=== PATIENT | male | born 1940 | race Caucasian/White ===

== ENCOUNTER 2019-03-28 22:08 | Emergency (ER) | payer MEDICARE ==
[2019-03-28] MEDS ORDERED: Sodium Chloride 0.9% 10 ML Syringe FLUSH PRN (22:22)
--- NOTE | 2019-03-28 22:28 | EDM.PDOC ---
ED HPI GENERAL MEDICAL PROBLEM - General Chief Complaint: Gastrointestinal Problem Stated Complaint: PAIN IN LOWER ABDOMEN Time Seen by Provider: 03/28/19 22:11 Source of Information: Reports: Patient History Limitations: Reports: No Limitations - History of Present Illness INITIAL COMMENTS - FREE TEXT/NARRATIVE: Patient presents with complaints of a right sided inguinal hernia that he feels has increased in size and is now causing him pain. Rates a 5/10. The increase in size is new to tonight. Extensive medical history includes CVA with right sided residual weakness in 2016, persistent a-fib, BPH. Primary provider is Dr. Nereida Funes. He denies chest pain, sob, nausea, vomiting, diarrhea, no blood in urine or stools. He has right lower quadrant, right upper thigh and scrotal pain. Described as an ache. No recent falls. Takes coumadin. Onset: Gradual Duration: Getting Worse Location: Reports: Abdomen, Lower Extremity, Right Quality: Reports: Ache Severity: Moderate Right Scrotum Pain Score (Numeric/FACES): 5 - Related Data Allergies Allergy/AdvReac Type Severity Reaction Status Date / Time No Known Allergies Allergy Verified 03/28/19 22:17 Home Meds: Home Meds Allopurinol [Zyloprim] 100 mg PO DAILY 10/23/15 [History] Carvedilol 12.5 mg PO BID 10/23/15 [History] Montelukast [Singulair] 10 mg PO DAILY 10/23/15 [History] Omeprazole [Prilosec] 20 mg PO DAILY 10/23/15 [History] Simvastatin [Zocor] 40 mg PO DAILY 10/23/15 [History] Ubidecarenone [Co Q-10] 1,000 mg PO DAILY 10/23/15 [History] Warfarin [Coumadin] 5 mg PO ASDIRECTED 10/23/15 [History] Finasteride 1 tab PO DAILY 03/28/19 [History] Fluticasone Propionate [Flonase] 2 spray NASBOTH DAILY 03/28/19 [History] Ipratropium [Atrovent 0.06% Nasal [place]] 2 spray NASBOTH TID PRN 03/28/19 [ History] Multivits,Ca,Minerals/Iron/FA [Thera-M] 1 each PO DAILY 03/28/19 [History] Saw [place] 2 cap PO DAILY 03/28/19 [History] Tamsulosin HCl 1 tab PO DAILY 03/28/19 [History] Past Medical History HEENT History: Reports: Hard of Hearing, Impaired Vision Musculoskeletal History: Reports: Gout Neurological History: Reports: CVA ED ROS GENERAL - Review of Systems Review Of Systems: See Below Constitutional: Reports: No Symptoms HEENT: Reports: No Symptoms Respiratory: Reports: No Symptoms Cardiovascular: Reports: No Symptoms Endocrine: Reports: No Symptoms GI/Abdominal: Reports: Abdominal Pain, Other (hernia) : Reports: No Symptoms Musculoskeletal: Reports: No Symptoms, Leg Pain Skin: Reports: No Symptoms Neurological: Reports: No Symptoms Psychiatric: Reports: No Symptoms Hematologic/Lymphatic: Reports: No Symptoms Immunologic: Reports: No Symptoms ED EXAM, GI/ABD - Physical Exam Exam: See Below Exam Limited By: No Limitations General Appearance: Alert, WD/WN, Mild Distress Eyes: Bilateral: Normal Appearance, EOMI Ears: Normal TMs Neck: Normal Inspection, Supple, Non-Tender, Full Range of Motion Respiratory/Chest: No Respiratory Distress, Lungs Clear, Normal Breath Sounds, No Accessory Muscle Use, Chest Non-Tender Cardiovascular: Normal Peripheral Pulses, Regular Rate, Rhythm, No Edema, No Gallop, No JVD, No Murmur, No Rub GI/Abdominal Exam: Normal Bowel Sounds, Soft, Hernia (Male) Exam: Hernia (right inguinal), Scrotum Tenderness (R) Back Exam: Normal Inspection, Full Range of Motion, NT Extremities: Normal Inspection, Non-Tender, No Pedal Edema, Normal Capillary Refill, Limited Range of Motion ( right leg has limited rom secondary to prior CVA) Neurological: Alert, Oriented, CN II-XII Intact, Normal Cognition, Normal Gait Psychiatric: Normal Affect, Normal Mood Lymphatic: No Adenopathy Course - Vital Signs Last Recorded V/S: Last Vital Signs Temp 36.4 C 03/28/19 22:18 Pulse 50 L 03/28/19 22:18 Resp 18 03/28/19 22:18 BP 129/62 03/28/19 22:18 Pulse Ox 95 03/28/19 22:18 - Orders/Labs/Meds Orders: Active Orders 24 hr Category Date Time Status Abdomen w Cont [CT] Stat Exams 03/28/19 22:22 Ordered CBC WITH AUTO DIFF [HEME] Stat Lab 03/28/19 22:21 Ordered COMPREHENSIVE METABOLIC PN,CMP [CHEM] Stat Lab 03/28/19 22:21 Ordered CRP [C-REACTIVE PROTEIN] [CHEM] Stat Lab 03/28/19 22:21 Ordered Sodium Chloride 0.9% [Saline Flush] Med 03/28/19 22:22 Active 10 ml FLUSH ASDIRECTED PRN Saline Lock Insert [OM.PC] Routine Oth 03/28/19 22:22 Ordered Medication Orders Sodium Chloride (Saline Flush) 10 ml FLUSH ASDIRECTED PRN PRN Reason: Keep Vein Open Meds: Medications Generic Name Dose Route Start Last Admin Trade Name Freq PRN Reason Stop Dose Admin Sodium Chloride 10 ml 03/28/19 22:22 Saline Flush FLUSH ASDIRECTED PRN Keep Vein Open - Radiology Interpretation Free Text/Narrative:: CT shows suspected incarcerated right inguinal hernia Departure - Departure Time of Disposition: 01:01 Disposition: Home, Self-Care 01 Condition: Good Clinical Impression: Incarcerated right inguinal hernia - Discharge Information *PRESCRIPTION DRUG MONITORING PROGRAM REVIEWED*: Not Applicable *COPY OF PRESCRIPTION DRUG MONITORING REPORT IN PATIENT KANA: Not Applicable Instructions: Inguinal Hernia, Adult, [id number] Referrals: Nereida Funes, [Primary Care Provider] - Forms: ED Department Discharge Additional Instructions: Plan 1. Follow up with surgery in the next couple of days for possible surgical reduction of the hernia. 2. I talked with Dr. Hurtado, the b2b sales professional surgeon at [facility] who did not feel surgery was warranted immediately. 3. Watch closely and if there is any worsening of your pain, I would recommend going to [facility] as they are able to admit and perform surgery if needed. 4. Let Dr. Funes know you were here and that you are to follow up with surgery in the next few days. 5. You may take tylenol for pain. 6. Please contact us if you have any questions or concerns. ED Communication - ED Communication Date/Time Date: 03/29/19 Time Called: 00:40 - Discussed Case With (1) Discussed Case With (1): Other (Dr. Evans contacted at [facility]. Review of CT results. Encouraged follow up with surgery, but not emergent for surgery. ) - Problem List & Annotations (1) Incarcerated right inguinal hernia SNOMED Code(s): 576350926 Code(s): K40.30 - UNIL INGUINAL HERNIA, W OBST, W/O GANGR, NOT SPCF RECUR Status: Acute Priority: Medium Current Visit: Yes - Problem List Review Problem List Initiated/Reviewed/Updated: Yes - My Orders Last 24 Hours: My Active Orders 03/28/19 22:21 CBC WITH AUTO DIFF [HEME] Stat COMPREHENSIVE METABOLIC PN,CMP [CHEM] Stat CRP [C-REACTIVE PROTEIN] [CHEM] Stat 03/28/19 22:22 Abdomen w Cont [CT] Stat Sodium Chloride 0.9% [Saline Flush] 10 ml FLUSH ASDIRECTED PRN Saline Lock Insert [OM.PC] Routine - Assessment/Plan Last 24 Hours: My Active Orders 03/28/19 22:21 CBC WITH AUTO DIFF [HEME] Stat COMPREHENSIVE METABOLIC PN,CMP [CHEM] Stat CRP [C-REACTIVE PROTEIN] [CHEM] Stat 03/28/19 22:22 Abdomen w Cont [CT] Stat Sodium Chloride 0.9% [Saline Flush] 10 ml FLUSH ASDIRECTED PRN Saline Lock Insert [OM.PC] Routine Assessment:: Incarcerated right inguinal hernia, suspected Plan: Plan 1. Follow up with surgery in the next couple of days for possible surgical reduction of the hernia. 2. I talked with Dr. Hurtado, the b2b sales professional surgeon at [facility] who did not feel surgery was warranted immediately. 3. Watch closely and if there is any worsening of your pain, I would recommend going to [facility] as they are able to admit and perform surgery if needed. 4. Let Dr. Funes know you were here and that you are to follow up with surgery in the next few days. 5. You may take tylenol for pain. 6. Please contact us if you have any questions or concerns.
[2019-03-28] MEDS ORDERED: Sodium Chloride 0.9% 1,000 ML IV ONE (22:31)
[2019-03-28 22:57] LABS: CHLORIDE,CL 108 mmol/L (98-107); SODIUM,NA 143 mmol/L (136-145)
[2019-03-28 22:58] LABS: ANION GAP 11.2 mmol/L (10-20)
[2019-03-28] MEDS ORDERED: Iopamidol 612 MG/ML 100 ML Bottle IVPUSH ONE (23:18)
--- NOTE | 2019-03-29 08:55 | CT ---
[id number] CT/CT Abdomen Pelvis W IV EXAM: ABDOMEN AND PELVIS CT WITH CONTRAST INDICATION: Increased hernia and scrotal pain. COMPARISON: None. DISCUSSION: There is a small to moderate fat-containing right inguinal hernia with infiltration of the fat and a small amount of fluid within the hernia sac suspicious for incarceration. The right anterior aspect of the urinary bladder is pulled toward the hernia orifice, but is not contained within the hernia. There is a small left inguinal hernia that appears post repair and a small fat-containing umbilical hernia. There are few right renal cysts the largest measuring about 5.8 x 3.9 cm. Prior cholecystectomy is suggested. 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 Scattered colonic diverticula without evidence of diverticulitis. The liver, spleen, pancreas, adrenal glands, and small bowel are normal in appearance. No adenopathy, free air free fluid. Grade 1 L4-L5 spondylolisthesis. IMPRESSION: 1. Small to moderate fat-containing right inguinal hernia with infiltration of the fat and a small amount of fluid within the hernia sac suggesting incarceration. Wagner Edwards MD 03/29/19 0853 Thank you for allowing us to participate in the care of your patient.
== END 2019-03-29 01:10 | disposition home or self-care (01) ==
LOC: VM.ED 22:08
DX: K40.30 Unilateral inguinal hernia, with obstruction, without gangrene, not specified as recurrent (principal); I69.351 Hemiplegia and hemiparesis following cerebral infarction affecting right dominant side; M10.9 Gout, unspecified; Z79.899 Other long term (current) drug therapy; Z79.01 Long term (current) use of anticoagulants
CPT/HCPCS: 74177; 80053; 85025; 85610; 86140; 96360; 99284; J7030; Q9967; 36415

== ENCOUNTER 2020-09-16 03:35 | Emergency (ER) | payer MEDICARE ==
[2020-09-16] MEDS ORDERED: Ondansetron 8 MG in Sodium Chloride 0.9% 100 ML IV ONE (04:15)
[2020-09-16] MEDS ORDERED: Sodium Chloride 0.9% 1,000 ML IV SCH (04:15)
--- NOTE | 2020-09-16 04:22 | EDM.PDOC ---
ED HPI GENERAL MEDICAL PROBLEM - General Chief Complaint: Gastrointestinal Problem Stated Complaint: Generlized weakness, diarrhea Time Seen by Provider: 09/16/20 04:00 Source of Information: Reports: Patient, EMS, Family History Limitations: Reports: No Limitations - History of Present Illness INITIAL COMMENTS - FREE TEXT/NARRATIVE: Patient states he has been having diarrhea that started early Wednesday morning. Unable to quantify the number of times with patient states it was regular all day. He denies any vomiting but states she has been nauseated at times. EMS was called after patient got up early this morning to go to the bathroom and got dizzy after going to the bathroom. States he has been eating and drinking normally with no issues. He denies any other sick contacts and is ate nothing out of the ordinary. He denies any abdominal pain chest pain weakness no rectal bleeding States he feels normal overall Onset: Sudden Duration: Day(s): Quality: Denies: Ache, Burning, Dull, Pressure, Stabbing, Throbbing Severity: Moderate Improves with: Reports: None Worsens with: Reports: None Associated Symptoms: Reports: Diaphoresis, Nausea/Vomiting. Denies: Confusion, Chest Pain, Cough, cough w sputum, Fever/Chills, Headaches, Loss of Appetite, Rash, Seizure, Shortness of Breath, Syncope, Weakness Low abdomen Pain Score (Numeric/FACES): 4 - Related Data Allergies Allergy/AdvReac Type Severity Reaction Status Date / Time No Known Allergies Allergy Verified 09/16/20 04:29 Home Meds: Home Meds Allopurinol [Zyloprim] 100 mg PO DAILY 10/23/15 [History] Montelukast [Singulair] 10 mg PO DAILY 10/23/15 [History] Omeprazole [Prilosec] 20 mg PO DAILY 10/23/15 [History] Simvastatin [Zocor] 40 mg PO DAILY 10/23/15 [History] Ubidecarenone [Co Q-10] 1,000 mg PO DAILY 10/23/15 [History] Warfarin [Coumadin] 5 mg PO ASDIRECTED 10/23/15 [History] carvediloL [Carvedilol] 12.5 mg PO BID 10/23/15 [History] Finasteride 1 tab PO DAILY 03/28/19 [History] Fluticasone Propionate [Flonase] 2 spray NASBOTH DAILY 03/28/19 [History] Ipratropium [Atrovent 0.06% Nasal [place]] 2 spray NASBOTH TID PRN 03/28/19 [History] Multivit,Calc,Mins/Iron/Folic [Thera-M] 1 each PO DAILY 03/28/19 [History] Saw [place] 2 cap PO DAILY 03/28/19 [History] Tamsulosin HCl 1 tab PO DAILY 03/28/19 [History] Past Medical History HEENT History: Reports: Hard of Hearing, Impaired Vision Cardiovascular History: Reports: Afib, Cardiomyopathy, High Cholesterol, PVD, Other (See Below) Other Cardiovascular History: prolonged QT syndrome, stenosis of right carotid artery Respiratory History: Reports: Sleep Apnea, SOB Gastrointestinal History: Reports: PUD Genitourinary History: Reports: BPH, Chronic Renal Insuffiency Musculoskeletal History: Reports: Gout Neurological History: Reports: CVA Other Neuro History: right sided weakness, 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 Endocrine/Metabolic History: Reports: Obesity/BMI 30+, Other (See Below) Other Endocrine/Metabolic History: hyperglycemia - Infectious Disease History Infectious Disease History: Reports: MRSA, Other (See Below) Other Infectious Disease History: herpes zoster - Past Surgical History Cardiovascular Surgical History: Reports: Carotid Endarterectomy, Other (See Below) ED ROS GENERAL - Review of Systems Review Of Systems: See Below Constitutional: Reports: No Symptoms, Diaphoresis, Other (Patient says he got little sweaty after the last episode right before EMS was called lasted just a second or 2 with the dizziness but it resolved shortly) HEENT: Reports: No Symptoms Respiratory: Reports: No Symptoms. Denies: Shortness of Breath Cardiovascular: Reports: No Symptoms. Denies: Chest Pain, Blood Pressure Problem, Claudication, Dyspnea on Exertion, Edema, Lightheadedness, Orthopnea, Palpitations, PND, Syncope Endocrine: Reports: No Symptoms GI/Abdominal: Reports: Nausea. Denies: Abdominal Pain, Black Stool, Bloody Stool, Constipation, Diarrhea, Decreased Appetite, Distension, Flatus, Hematemesis, Hematochezia, Melena, Mucous in Stool, Vomiting Musculoskeletal: Reports: No Symptoms Skin: Reports: No Symptoms Neurological: Reports: Dizziness. Denies: Confusion, Headache, Numbness, Paresthesia, Syncope, Tingling, Trouble Speaking, Weakness, Change in Speech Psychiatric: Reports: No Symptoms Hematologic/Lymphatic: Reports: No Symptoms Immunologic: Reports: No Symptoms ED EXAM, GI/ABD - Physical Exam Exam: See Below Exam Limited By: No Limitations General Appearance: Alert, WD/WN, No Apparent Distress, Other (Patient looks well and is oriented x4 normal conversation logical thought process and follows all commands appropriately) Eyes: Bilateral: Normal Appearance, EOMI Ears: Hearing Grossly Normal, Other (Hearing aid to the left ear) Nose: Normal Inspection, Normal Mucosa, No Blood Throat/Mouth: Normal Inspection, Normal Lips, Normal Teeth, Normal Gums, Normal Oropharynx, Normal Voice, No Airway Compromise, Other (Patient has mild dry mucous membranes but still has saliva) Head: Atraumatic, Normocephalic Neck: Normal Inspection, Supple, Non-Tender, Full Range of Motion Respiratory/Chest: No Respiratory Distress, Lungs Clear, Normal Breath Sounds, No Accessory Muscle Use, Chest Non-Tender Cardiovascular: Normal Peripheral Pulses, Regular Rate, Rhythm, No Edema, No Gallop, No JVD, No Murmur, No Rub GI/Abdominal Exam: Soft, Non-Tender, No Organomegaly, No Distention, No Abnormal Bruit, Other (Noted increased bowel sounds throughout the 4 quadrants there is no tenderness to palpation no rebound no distention no grimace with palpation could be elicited there is no distention no signs of any peritoneal issues). No: Normal Bowel Sounds, Guarding, Rigid, Rebound, Tender Extremities: Normal Inspection, Normal Range of Motion, Non-Tender, No Pedal Edema, Normal Capillary Refill, Other (Patient has bilateral equal fall intern 5 of 5 upper extremity lower extremity graded at left 5 of 5 right 3-5 which is normal secondary to his past CVA history there is no noted pedal edema noted bilateral) Neurological: Alert, Oriented, CN II-XII Intact, Normal Cognition, No Motor/Sensory Deficits Psychiatric: Normal Affect, Normal Mood Skin Exam: Warm, Dry, Intact, Normal Color, No Rash (Patient has normal skin turgor) Course - Vital Signs Text/Narrative:: CBC BMP INR 1 L normal saline bolus 8 mg Zofran IV Last Recorded V/S: Last Vital Signs Temp 36.9 C 09/16/20 03:30 Pulse 92 09/16/20 03:30 Resp 16 09/16/20 03:30 BP 110/76 02/08/21 03:30 Pulse Ox 95 09/16/20 03:30 - Orders/Labs/Meds Orders: Active Orders 24 hr Category Date Time Status Sodium Chloride 0.9% [Normal Saline] 1,000 ml Med 09/16/20 04:15 Active IV ASDIRECTED Medication Orders Sodium Chloride (Normal Saline) 1,000 mls @ 1,000 mls/hr IV ASDIRECTED ZAIRA Last Admin: 09/16/20 03:50 Dose: 1,000 mls/hr Documented by: MARGARITO Labs: Laboratory Tests 09/16/20 09/16/20 09/16/20 Range/Units 04:10 04:10 04:10 WBC 8.7 (4.0-10.0) x10^3/uL RBC 5.11 (4.5-6.0) x10^6/uL Hgb 17.2 D (14.0-18.0) g/dL Hct 49.2 (40.0-52.0) % MCV 96.3 H (78.0-93.0) fL MCH 33.7 H (26.0-32.0) pg MCHC 35.0 (32.0-36.0) g/dL RDW Coeff of Sukumar 12.6 (10.0-15.0) % Plt Count 138 (130-400) x10^3/uL Neut % (Auto) 78.0 (50.0-80.0) % Lymph % (Auto) 7.7 L (25.0-50.0) % [place] % (Auto) 11.0 (2.0-11.0) % Eos % (Auto) 3.0 (0.0-4.0) % Baso % (Auto) 0.3 (0.2-1.2) % PT 28.1 H (9.9-12.5) SEC INR 2.5 (2.0-3.5) Sodium 141 (136-145) mmol/L Potassium 4.7 (3.5-5.1) mmol/L Chloride 109 H (98-107) mmol/L Carbon Dioxide 21 (21-32) mmol/L Anion Gap 15.7 H (5-15) mmol/L BUN 22 H (7-18) mg/dL Creatinine 1.4 H (0.70-1.30) mg/dL Est Cr Clr Drug Dosing 45.57 mL/min Estimated GFR (MDRD) 49 Glucose 151 H (74-106) mg/dL Calcium 9.2 (8.5-10.1) mg/dL Meds: Medications Generic Name Dose Route Start Last Admin Trade Name Freq PRN Reason Stop Dose Admin Sodium Chloride 1,000 mls @ 1,000 mls/hr 09/16/20 04:15 09/16/20 03:50 Normal Saline IV 1,000 mls/hr ASDIRECTED ZAIRA Administration Discontinued Medications Generic Name Dose Route Start Last Admin Trade Name Freq PRN Reason Stop Dose Admin Ondansetron HCl 8 mg/ Sodium 104 mls @ 400 mls/hr 09/16/20 04:15 Chloride IV 09/16/20 04:30 ONETIME ONE Ondansetron HCl 4 mg 09/16/20 04:32 09/16/20 04:36 Zofran IVPUSH 09/16/20 04:33 4 mg ONETIME ONE Administration Departure - Departure Time of Disposition: 06:00 Disposition: Home, Self-Care 01 Condition: Good Clinical Impression: Diarrhea, Nausea, Dehydration, Dizziness - Discharge Information *PRESCRIPTION DRUG MONITORING PROGRAM REVIEWED*: No *COPY OF PRESCRIPTION DRUG MONITORING REPORT IN PATIENT KANA: No Instructions: Dehydration, Adult, [id number], Diarrhea, Adult, [id number] Forms: ED Department Discharge Additional Instructions: Return to the emergency room if anything changes or gets worse Follow-up with your primary care provider in the next 24 to 48 hours Make sure you drink plenty of fluids such as water Gatorade Pedialyte Sprite or 7-Up. Make sure you try to eat easy things on the gut such as bananas applesauce toast and advance your diet as tolerated. Again if anything gets worse or changes return to the emergency room Sepsis Event Note (ED) - Focused Exam Vital Signs: Vital Signs Temp Pulse Resp BP Pulse Ox 09/16/20 03:30 36.9 C 92 16 110/76 95 - Problem List & Annotations (1) Dehydration SNOMED Code(s): 70056728 Code(s): E86.0 - DEHYDRATION Status: Acute (2) Diarrhea SNOMED Code(s): 96792108 Code(s): R19.7 - DIARRHEA, UNSPECIFIED Status: Acute (3) Dizziness SNOMED Code(s): 871286039, 227517373 Code(s): R42 - DIZZINESS AND GIDDINESS Status: Acute (4) Nausea SNOMED Code(s): 619886011 Code(s): R11.0 - NAUSEA Status: Acute - My Orders Last 24 Hours: My Active Orders 09/16/20 04:15 Sodium Chloride 0.9% [Normal Saline] 1,000 ml IV ASDIRECTED - Assessment/Plan Last 24 Hours: My Active Orders 09/16/20 04:15 Sodium Chloride 0.9% [Normal Saline] 1,000 ml IV ASDIRECTED
[2020-09-16] MEDS ORDERED: Ondansetron 4 MG/2 ML SDV IVPUSH ONE (04:32)
[2020-09-16 04:35] LABS: ANION GAP 15.7 mmol/L (5-15)
[2020-09-16] MEDS ORDERED: Sodium Chloride 0.9% 1,000 ML IV ONE (04:45)
== END 2020-09-16 06:45 | disposition home or self-care (01) ==
LOC: VM.ED 03:35
DX: E86.0 Dehydration (principal); R19.7 Diarrhea, unspecified; R11.0 Nausea; I48.91 Unspecified atrial fibrillation; E78.00 Pure hypercholesterolemia, unspecified; N18.9 Chronic kidney disease, unspecified; E66.9 Obesity, unspecified; Z68.32 Body mass index [BMI] 32.0-32.9, adult; Z79.899 Other long term (current) drug therapy
CPT/HCPCS: 80048; 85025; 85610; 96374; 99284; 99284-25; J2405; J7030

== ENCOUNTER 2021-01-03 20:15 | Emergency (ER) | payer MEDICARE ==
[2021-01-03] MEDS ORDERED: Sodium Chloride 0.9% 10 ML Syringe FLUSH PRN (20:40)
--- NOTE | 2021-01-03 21:17 | EDM.PDOC ---
ED HPI GENERAL MEDICAL PROBLEM - General Stated Complaint: SOB Time Seen by Provider: 01/03/21 20:36 Source of Information: Reports: Patient - History of Present Illness INITIAL COMMENTS - FREE TEXT/NARRATIVE: Sanket is a 80 y/o male who comes to the ER with progressive SOB. He reports first feeling this way today [facility]. He then light gotten home and reports whenever he gets up to walk her gets very SOB and then has to sit and catch his breath. No fever. Denies chest pain. - Related Data Allergies Allergy/AdvReac Type Severity Reaction Status Date / Time No Known Allergies Allergy Verified 09/16/20 04:29 Home Meds: Home Meds Allopurinol [Zyloprim] 100 mg PO DAILY 10/23/15 [History] Montelukast [Singulair] 10 mg PO DAILY 10/23/15 [History] Omeprazole [Prilosec] 20 mg PO DAILY 10/23/15 [History] Simvastatin [Zocor] 40 mg PO DAILY 10/23/15 [History] Ubidecarenone [Co Q-10] 1,000 mg PO DAILY 10/23/15 [History] Warfarin [Coumadin] 5 mg PO ASDIRECTED 10/23/15 [History] carvediloL [Carvedilol] 12.5 mg PO BID 10/23/15 [History] Finasteride 1 tab PO DAILY 03/28/19 [History] Fluticasone Propionate [Flonase] 2 spray NASBOTH DAILY 03/28/19 [History] Ipratropium [Atrovent 0.06% Nasal [place]] 2 spray NASBOTH TID PRN 03/28/19 [History] Multivit,Calc,Mins/Iron/Folic [Thera-M] 1 each PO DAILY 03/28/19 [History] Saw [place] 2 cap PO DAILY 03/28/19 [History] Tamsulosin HCl 1 tab PO DAILY 03/28/19 [History] Furosemide [Lasix] 20 mg PO BID #14 tab 01/03/21 [Rx] Past Medical History HEENT History: Reports: Hard of Hearing, Impaired Vision Cardiovascular History: Reports: Afib, Cardiomyopathy, High Cholesterol, PVD, Other (See Below) Other Cardiovascular History: prolonged QT syndrome, stenosis of right carotid artery Respiratory History: Reports: Sleep Apnea, SOB Gastrointestinal History: Reports: PUD Genitourinary History: Reports: BPH, Chronic Renal Insuffiency Musculoskeletal History: Reports: Gout Neurological History: Reports: CVA Other Neuro History: right sided weakness, 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 Endocrine/Metabolic History: Reports: Obesity/BMI 30+, Other (See Below) Other Endocrine/Metabolic History: hyperglycemia - Infectious Disease History Infectious Disease History: Reports: MRSA, Other (See Below) Other Infectious Disease History: herpes zoster - Past Surgical History Cardiovascular Surgical History: Reports: Carotid Endarterectomy, Other (See Below) Review of Systems - Review of Systems Review Of Systems: See Below Constitutional: Reports: No Symptoms Eyes: Reports: No Symptoms Ears: Reports: No Symptoms Nose: Reports: No Symptoms Mouth/Throat: Reports: No Symptoms Respiratory: Reports: Shortness of Breath. Denies: Cough Cardiovascular: Denies: Chest Pain GI/Abdominal: Reports: No Symptoms Genitourinary: Reports: No Symptoms Musculoskeletal: Reports: No Symptoms Skin: Reports: No Symptoms Neurological: Reports: No Symptoms Psychiatric: Reports: No Symptoms ED EXAM, GENERAL - Physical Exam Exam: See Below General Appearance: Alert, WD/WN, No Apparent Distress (Elderly male. Able to answer questions. Sitting on ER at rest and appears comfortable) Eye Exam: Bilateral Eye: PERRL Ears: Normal External Exam, Hearing Grossly Normal, Normal TMs Nose: Normal Inspection, Normal Mucosa Throat/Mouth: Normal Inspection, Normal Lips, Normal Voice Head: Atraumatic, Normocephalic Neck: Normal Inspection, Supple Respiratory/Chest: No Respiratory Distress, Decreased Breath Sounds, Rales (scattered in the bases) Cardiovascular: Regular Rate, Rhythm, No Murmur GI/Abdominal: Normal Bowel Sounds, Soft (Male) Exam: Deferred Rectal (Males) Exam: Deferred Back Exam: Normal Inspection Extremities: Normal Inspection, Normal Range of Motion, No Pedal Edema Neurological: Alert, Oriented, CN II-XII Intact, No Motor/Sensory Deficits Psychiatric: Normal Affect, Normal Mood Skin Exam: Warm, Dry, Intact, Normal Color #1 Interpretation EKG Date: 01/03/21 Time: 20:28 EKG Interpretation Comments: Paced rhythm Course - Vital Signs Text/Narrative:: 2029 The patient was seen by the [facility]PERATOR. Labs, CXR, and EKG ordered. EKG done and notes paced rhythm. 2145 Labs reviewed. CBC neg, CMP BUN=21, Gwthrtj=664. D Dimer=0.99, in MD Calc review note low risk of VTE in persons aged 79 years old. [facility] Chart reviewed and per notes of Dr Nereida Funes patient resuming Eliquis and needing Neuro consult for CT due to recent stroke when [place] was [place] of state. Awaiting Troponin. Lasix 40mg IVP ordered. Vital stable and patient looks overall good. Will plan oral diuretic for home if patient can void after the Lasix dose here in the ER. Does not appear in review of his recent Milnor notes that he has been on a diuretic. 2219 Tropo=neg. 0 Patient voided small amt from Lasix. Will monitor to see if patient can void a bit more. Vital stable. Resting quietly. 2305 Voided 400ml, UA neg. Will discharge to home with oral Lasix tomorrow. Patient and his were given discharge instructions and he left the ER in stable condition. - Orders/Labs/Meds Orders: Active Orders 24 hr Category Date Time Status EKG Documentation Completion [RC] STAT Care 01/03/21 20:40 Active Chest 2V [CR] Stat Exams 01/03/21 20:41 Taken UA RFX DONNA AND CULT IF INDIC [URIN] Stat Lab 01/03/21 20:40 Ordered Sodium Chloride 0.9% [Saline Flush] Med 01/03/21 20:40 Active 10 ml FLUSH ASDIRECTED PRN Saline Lock Insert [OM.PC] Stat Oth 01/03/21 20:40 Ordered Medication Orders Sodium Chloride (Sodium Chloride 0.9% 10 Ml Syringe) 10 ml FLUSH ASDIRECTED PRN PRN Reason: Keep Vein Open Labs: Laboratory Tests 01/03/21 01/03/21 01/03/21 Range/Units 20:55 20:55 20:55 WBC 6.6 (4.0-10.0) x10^3/uL RBC 3.99 L (4.5-6.0) x10^6/uL Hgb 13.7 L D (14.0-18.0) g/dL Hct 40.6 (40.0-52.0) % MCV 101.8 H D (78.0-93.0) fL MCH 34.3 H (26.0-32.0) pg MCHC 33.7 (32.0-36.0) g/dL RDW Coeff of Sukumar 14.1 (10.0-15.0) % Plt Count 140 (130-400) x10^3/uL Neut % (Auto) 71.9 (50.0-80.0) % Lymph % (Auto) 11.3 L (25.0-50.0) % Frio % (Auto) 12.1 H (2.0-11.0) % Eos % (Auto) 4.2 H (0.0-4.0) % Baso % (Auto) 0.5 (0.2-1.2) % PT 12.2 D (9.9-12.5) SEC INR 1.1 L (2.0-3.5) APTT 23.8 L (25.6-32.8) SEC D-Dimer, Quantitative 0.99 H (<=0.58) mg/LFEU Sodium 143 (136-145) mmol/L Potassium 4.2 (3.5-5.1) mmol/L Chloride 109 H (98-107) mmol/L Carbon Dioxide 25 (21-32) mmol/L Anion Gap 13.2 (5-15) mmol/L BUN 21 H (7-18) mg/dL Creatinine 1.2 (0.70-1.30) mg/dL Est Cr Clr Drug Dosing TNP Estimated GFR (MDRD) 58 Glucose 126 H (70-99) mg/dL Calcium 8.9 (8.5-10.1) mg/dL Corrected Calcium 9.5 (8.5-10.1) mg/dL Magnesium 1.8 (1.8-2.4) mg/dL Total Bilirubin 1.1 H (0.2-1.0) mg/dL AST 22 (15-37) U/L ALT 32 (16-63) U/L Alkaline Phosphatase 100 (46-116) U/L Troponin I High Sens 17 (<=76) ng/L C-Reactive Protein 1.3 H (<=0.9) mg/dL NT-Pro-B Natriuret Pep 3834 H (<=450) pg/mL Total Protein 7.2 (6.4-8.2) g/dL Albumin 3.3 L (3.4-5.0) g/dL Globulin 3.9 Albumin/Globulin Ratio 0.85 Meds: Medications Generic Name Dose Route Start Last Admin Trade Name Freq PRN Reason Stop Dose Admin Sodium Chloride 10 ml 01/03/21 20:40 Sodium Chloride 0.9% 10 Ml Syringe FLUSH ASDIRECTED PRN Keep Vein Open Discontinued Medications Generic Name Dose Route Start Last Admin Trade Name Freq PRN Reason Stop Dose Admin Furosemide 40 mg 01/03/21 21:50 Furosemide 40 Mg/4 Ml Vial IV 01/03/21 21:51 ONETIME ONE Furosemide 40 mg 01/03/21 21:55 Furosemide 40 Mg/4 Ml Vial IV 01/03/21 21:56 ONETIME ONE - Radiology Interpretation Free Text/Narrative:: XR Chest=no consolidation, mild cardiomegaly (See final report) Departure - Departure Time of Disposition: 23:07 Disposition: Home, Self-Care 01 Condition: Good Clinical Impression: Fluid overload Qualifiers: Hypervolemia type: unspecified Qualified Code(s): E87.70 - Fluid overload, unspecified - Discharge Information Prescriptions: Furosemide [Lasix] 20 mg PO BID #14 tab Instructions: Heart Failure, Self Care, [id number] Referrals: Nereida Funes, [Primary Care Provider] - - My Orders Last 24 Hours: My Active Orders 01/03/21 20:40 EKG Documentation Completion [RC] STAT UA RFX DONNA AND CULT IF INDIC [URIN] Stat Sodium Chloride 0.9% [Saline Flush] 10 ml FLUSH ASDIRECTED PRN Saline Lock Insert [OM.PC] Stat 01/03/21 20:41 Chest 2V [CR] Stat - Assessment/Plan Last 24 Hours: My Active Orders 01/03/21 20:40 EKG Documentation Completion [RC] STAT UA RFX DONNA AND CULT IF INDIC [URIN] Stat Sodium Chloride 0.9% [Saline Flush] 10 ml FLUSH ASDIRECTED PRN Saline Lock Insert [OM.PC] Stat 01/03/21 20:41 Chest 2V [CR] Stat Assessment:: 1)Fluid Overload Plan: -Lasix 20mg oral sx daily #14 (Rx) -Continue all other meds as prescribed -Will have patient follow up with Dr Nereida Funes for recheck on Wednesday or Wednesday. If he becomes more SOB or is not tolerating the Lasix he is to return to the ER
[2021-01-03 21:22] LABS: PTT,PARTIAL THROMBOPLSTIN TIME 23.8 SEC (25.6-32.8)
[2021-01-03 21:27] LABS: ANION GAP 13.2 mmol/L (5-15); CHLORIDE,CL 109 mmol/L (98-107); SODIUM,NA 143 mmol/L (136-145)
[2021-01-03] MEDS ORDERED: Furosemide 40 MG/4 ML VIAL IV ONE ×2 (21:50→21:55)
--- NOTE | 2021-01-04 08:46 | CR ---
[id number] RAD/RAD Chest PA And Lateral EXAM: RAD Chest PA And Lateral CLINICAL DATA: SHORTNESS OF BREATH COMPARISON: CORRELATION IS MADE WITH DECEMBER 02, 2009 FINDINGS: The lungs are clear but hyperaerated The cardiac silhouette is stable The pacemaker is seen IMPRESSION: COPD Carlos Knight MD 01/04/21 1892 Thank you for allowing us to participate in the care of your patient.
== END 2021-01-03 23:20 | disposition home or self-care (01) ==
LOC: VM.ED 20:15
DX: E87.70 Fluid overload, unspecified (principal); I48.91 Unspecified atrial fibrillation; E78.00 Pure hypercholesterolemia, unspecified; M10.9 Gout, unspecified; N18.9 Chronic kidney disease, unspecified; N40.0 Benign prostatic hyperplasia without lower urinary tract symptoms; E66.9 Obesity, unspecified; Z86.73 Personal history of transient ischemic attack (TIA), and cerebral infarction without residual deficits; Z79.899 Other long term (current) drug therapy; Z68.32 Body mass index [BMI] 32.0-32.9, adult; Z79.01 Long term (current) use of anticoagulants
CPT/HCPCS: 36415; 71046; 80053; 81001; 83735; 83880; 84484; 85025; 85379; 85610; 85730; 86140; 93005; 96374; 99285-25; J1940

== ENCOUNTER 2023-12-24 14:35 | Emergency (ER) | payer MEDICARE ==
[2023-12-24] MEDS: Albuterol 0.083% 2.5 MG/3 ML Neb Soln NEB ONE (15:00)
[2023-12-24 15:22] LABS: BASOPHILS PERCENT AUTO 0.2 % (0.2-1.2); EOSINOPHILS ABSOLUTE AUTO 0.2 x10^3/uL (0.0-0.5); EOSINOPHILS PERCENT AUTO 3.3 % (0.0-4.0); HEMATOCRIT 38.9 % (40.0-52.0); HEMOGLOBIN 13.1 g/dL (14.0-18.0); IMMATURE GRAN ABSOLUTE AUTO 0.01 x10^3/uL (0.00-0.07); LYMPHOCYTES ABSOLUTE AUTO 0.6 x10^3/uL (1.0-4.8); LYMPHOCYTES PERCENT AUTO 9.8 % (25.0-50.0); MEAN CORPUSCULAR HEMOGLOBIN 35.2 pg (26.0-32.0); MEAN CORPUSCULAR HGB CONC 33.7 g/dL (32.0-36.0); MEAN CORPUSCULAR VOLUME 104.6 fL (78.0-93.0); MONOCYTES PERCENT AUTO 16.3 % (2.0-11.0); NEUTROPHILS ABSOLUTE AUTO 4.3 x10^3/uL (1.8-7.7); NEUTROPHILS PERCENT AUTO 70.2 % (50.0-80.0); PLATELET COUNT,PLT 125 x10^3/uL (130-400); RED BLOOD CELL COUNT 3.72 x10^6/uL (4.5-6.0); WHITE BLOOD CELL COUNT,WBC 6.1 x10^3/uL (4.0-10.0)
[2023-12-24 15:25] LABS: BLOOD UREA NITROGEN,BUN 33 mg/dL (7-18); CALCIUM 8.7 mg/dL (8.5-10.1); CARBON DIOXIDE,CO2 27 mmol/L (21-32); CHLORIDE,CL 104 mmol/L (98-107); CREATININE 1.3 mg/dL (0.70-1.30); GLUCOSE RANDOM 127 mg/dL (70-99); POTASSIUM,K 4.7 mmol/L (3.5-5.1); SODIUM,NA 136 mmol/L (136-145)
[2023-12-24 15:26] LABS: ANION GAP 9.7 mmol/L (5-15); ESTIMATED GFR 55 mL/min (>=60)
[2023-12-24] MEDS ORDERED: Albuterol/Ipratropium 3.0-0.5 MG/3 ML Neb Soln NEB ONE (15:51)
[2023-12-24] MEDS: Albuterol/Ipratropium 3.0-0.5 MG/3 ML Neb Soln NEB ONE (16:06)
[2023-12-24] MEDS: predniSONE 20 MG Tab PO ONE (16:06)
== END 2023-12-24 16:35 | disposition home or self-care (01) ==
LOC: VM.ED 14:35
DX: J44.1 Chronic obstructive pulmonary disease with (acute) exacerbation (principal); I48.91 Unspecified atrial fibrillation; E78.00 Pure hypercholesterolemia, unspecified; Z79.899 Other long term (current) drug therapy; Z95.0 Presence of cardiac pacemaker; Z86.73 Personal history of transient ischemic attack (TIA), and cerebral infarction without residual deficits; Z79.01 Long term (current) use of anticoagulants
CPT/HCPCS: 71046; 80048; 85025; 93005; 94640; 99285; J7512; J7613-GY; J7620-GY